=== PATIENT | male | born 1945 | race Caucasian/White ===

== ENCOUNTER → 2020-01-03 12:28 | Outpatient (CLI) | payer MEDICARE, OTHER, SELFPAY ==
--- NOTE | 2020-01-03 12:45 | CT_ITS ---
STUDY: CT SCAN LEFT LOWER EXTREMITY LEFT REASON FOR EXAM: Male, 74 years old. VARUS DEFORMITY LT KNEE. Planning for MIN RADIATION DOSAGE (If Supplied By Facility): CTDIvol = ( 19.14 ) mGy, DLP = ( 1309.89 ) mGycm. Individualized dose optimization techniques were used for this CT.? TECHNIQUE: Multiple axial tomographic images of the hip joint, knee joint and ankle joint were obtained. Coronal and sagittal reconstruction was obtained as well. COMPARISON: None. FINDINGS: The left hip joint is unremarkable. There is no evidence of a bony lesion. The joint spaces well-maintained. There is a marked degree of joint space narrowing involving the medial compartment of the knee joint with degenerative spur formation along the distal femur and proximal tibia. A prominent degenerative spur is seen along the anterior femoral condyle. Several well-defined bony density is seen projecting over the posterior aspect of the distal femoral metaphysis. 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 There is fibrous deformity of the knee joint. The ankle joint demonstrates evidence of a plantar calcaneal spur. A talar neck beak is also seen. CT/Extremity Lower without Contra IMPRESSION: Marked degree of joint space narrowing involving the medial compartment of knee joint with evidence of degenerative spurring of the distal femur and proximal tibia as described. Well-defined bony density is seen along the posterior aspect of the distal femur suggestive of synovial osteochondromatosis. Electronically Signed: Kamran Schaeffer, at 13:50 EDT , Service support ,
== END ==
PROVIDERS: PCP Family Medicine; Referring Provider Specialist; Visit Provider Specialist
DX: M21.162 Varus deformity, not elsewhere classified, left knee (principal)
CPT/HCPCS: 73700

== ENCOUNTER → 2020-01-08 09:00 | Outpatient (CLI) | payer MEDICARE, OTHER, SELFPAY ==
--- NOTE | 2020-01-03 14:16 | HP.PCM_ITS ---
History and Physical History and Physical [facility] Patient Name: Tab Narayanan : 1945 From: NATI MORA PA-C DATE OF SURGERY: 01/22/2020 SCHEDULED PROCEDURE: left total knee arthroplasty HISTORY OF PRESENT ILLNESS: Preoperative history and physical exam was performed on January 03, 2020. This is a 74-year-old male who presents today with continued pain in bilateral knees. Patient has been having ongoing pain for over 10 years but states pain is increased over the past 6 months. Patient states his pain is increased with stairs, walking, and standing. He does have start up pain. Pain is located over the medial joint line of bilateral knees. His pain as being constant, aching, sharp, stabbing. Patient has difficult time with activities of daily living including shopping and leisure activities such as walking. He has stumbled secondary to the knee pain. Patient has attempted rest with minimal relief. He has tried ice, heat, elevation with no relief in symptoms. He has tried home exercises including stationary bike and weight loss with minimal relief. He has tried oral medications with no relief in symptoms. Patient denies previous surgery on bilateral knees. He has attempted Aleve and [id number] Advil. After failing conservative measures and discussing treatment options with Dr. Sammy Miranda, the patient does wish to proceed with a left total knee arthroplasty. We are obtaining surgical clearance from the primary care physician. He does have history of hypertension and hypercholesterolemia. Currently denies any chest pain, shortness of breath, fevers chills, recent infections. REVIEW OF SYSTEMS: ROS: Const: Denies change in appetite, fever and weight change. CV: Denies chest pain, heart murmur and irregular heartbeat. Resp: Reports cough, but denies pneumonia, shortness of breath, tuberculosis and wheezing. GI: Denies constipation, diarrhea, heartburn, nausea, rectal itching, bloody sto ols and vomiting. : Denies incontinence. Musculo: Reports leg swelling, pain, trouble walking and weakness. Skin: Denies Raynaud's, history of shingles and tattoo. Neuro: Reports tremor but denies ambulatory dysfunction, dizziness and numbness/tingling. Psych: Denies anxiety, insomnia and stress. Marcus/Lymph: Denies anemia, bleeding/bruising tendency and past transfusion. Reviewed, no changes. PAST MEDICAL HISTORY: Advance Care Plan: Other Directive, LIVING WILL Effective Date: 12/19/2019 PMH: Medical Problems: High Blood Pressure, Hypercholesterolemia Accidents: None Surgical Hx: Hernia Repair Anesthesia Complications: None Assistive Devices: Dentures, Glasses Reviewed and updated. SOCIAL HISTORY: SH: Marital: .Occupation: Retired.Work Status: Retired.Hand Dominance: Right-handed. Personal Habits: Cigarette Use: Former - 30 YEARS AGO.Smokeless Tobacco: Never Used Smokeless Tobacco.E-Cigarette Use: Never used.Alcohol: Has consumed alcohol in the past.Drug Use: Denies Use.Enjoy Exercising: Never Exercises. Reviewed and updated. VITALS: Ht: 70 Wt: 313lb Wt [id number] BMI: 44.9 BP: 142/92 Pulse: 86 Resp: 20 T: 97.5 T: 36.4C ALLERGIES: No Known Drug Allergy MEDICATIONS: Aspirin 81 81 mg 1 pill 2x/day by mouth, Lisinopril 20 mg 1 by mouth every day, Fenofibric Acid 45 mg 1po qday, Atorvastatin Calcium 80 mg 1 by mouth every day PRE-OP EXAM: General appearance:NORMAL Other: Eyes: Conjunctivae and lids: NORMAL Pupils: ERR Ears, Nose, Mouth, and Throat: NORMAL Other: Inspection of lips, teeth and gums: NORMAL Other: Neck: Examination of neck: no masses noted. Respiratory: Assessment of respiratory effort: NORMAL Other: Auscultation of lungs: clear to auscultation no wheezes, rhonchi or rales. Cardiovascular: Auscultation of heart: regular rate and rhythm, no murmurs, gallops or rubs. Exam of carotid arteries: NORMAL Other: Gastrointestinal: Exam of abdomen: soft, nontender, nondistended bowel sounds present. PHYSICAL EXAMINATION: Patient walks with a mild antalgic gait. Left knee is cool to touch without erythema or signs of infection. Patient is tender to palpation along the medial joint line. Patient does have varus alignment. This is partially correctable on exam. Sensation intact to light touch. Neurovascularly intact. IMAGING STUDIES: Previous x-rays of the left knee reveal varus alignment with medial joint space narrowing, subchondral sclerosis, osteophyte formation consistent with severe stage IV erosive osteoarthritis. Right knee also reveals varus alignment with medial joint space narrowing, subchondral sclerosis, osteophyte formation consistent with severe stage IV erosive osteoarthritis. IMPRESSION: 1. Severe left knee osteoarthritis 2. Severe right knee Osteoarthritis 3. Hypertension 4. Hypercholesterolemia PLAN: Dr. Sammy Miranda did discuss and review with the patient all treatment options including surgical versus nonsurgical options. Patient does wish to proceed with the above-stated procedure. Potential risks, benefits, and complications of the procedure were discussed in detail including but not limited to , infection, nerve and blood vessel damage, persistent pain, numbness, tingling, paresthesias, blood clot, pulmonary embolism, and requirement for possible further surgery. The patient expressed full understanding and has no further questions for the doctor. Patient does agree to proceed with the above-stated procedure and has signed the surgery consent form. We discussed the current risks associated with COVID 19. This does include the risk of exposure while in the hospital. Patient was reassured local hospitals have low infection rates and are taking all necessary precautions to avoid exposure to patients. In addition, we discussed strategies that can be used to help limit exposure including those that limit the patient's time in the hospital. Also using strategies to limit the patient's need for continued inpatient services after being discharged from the hospital. Patient was notified that we will need to comply with any screening or testing the hospital wishes to perform or that surgery may be delayed for any positive results. This dictation was created using voice recognition software. Phonetic and/or grammatical errors may exist. ___ I have re-examined the patient. There are no clinical changes since date of exam. ___ See progress notes for changes. ___ Dictated on admission Date: Time: Signature:
--- NOTE | 2020-01-15 11:03 | EKG12_ITS ---
Test Reason : PRE OP Blood Pressure : / mmHG Vent. Rate : 093 BPM Atrial Rate : 093 BPM P-R Int : 134 ms QRS Dur : 092 ms QT Int : 378 ms P-R-T Axes : 055 044 -20 degrees QTc Int : 469 ms Normal sinus rhythm ST & T wave abnormality, consider inferior ischemia Abnormal ECG Confirmed by BELLA LAN ([id number]), social media editor JOSSUE SANTORO ([id number]) on 01/20/2020 9:43:44 AM Referred By: Sammy Miranda Confirmed By:BELLA LAN
[2020-01-15 11:26] LABS: Absolute Lymphocyte Count 1.75 X10^3/uL (0.83-4.51); Absolute Neutrophil Count 4.4 X10^3/uL (2.0-7.7); Basophil# 0.09 X10^3/uL; Basophil% 1.2 % (0-1); Eosinophil# 0.39 X10^3/uL; Hematocrit 45.4 % (40-54); Hemoglobin 14.6 g/dL (13.0-16.5); Lymphocyte # 1.75 X10^3/ul (4.0); Lymphocyte % 22.5 % (19-41); Mean Corp Hgb Conc 32.2 g/dL (32-36); Mean Corpuscular Hgb 30.6 pg (27.0-32.0); Mean Corpuscular Volume 95.2 fL (80-94); Mean Platelet Vol. 12.1 fl (6.2-12.0); Monocyte# 1.15 X10^3/uL; Monocyte% 14.8 % (0-10); NRBC Flagged by Analyzer 0 % (0-5); Neutrophil # 4.36 X10^3/uL (2.7-7.7); Neutrophil % 56.1 % (47-70); Platelet Count 253 K/mm3 (150-450); RBC Distribution Width CV 12.7 % (11.6-14.6); RBC Distribution Width SD 43.8 fl (35.1-43.9); Red Blood Count 4.77 M/mm3 (4.6-6.2); White Blood Count 7.8 K/mm3 (4.4-11.0)
[2020-01-15 11:52] LABS: Anion Gap 5 (5-15); BUN 14 mg/dL (7-18); BUN/Creat Ratio 13.1 RATIO (10-20); Calcium,Total 8.8 mg/dL (8.5-10.1); Chloride 110 mmol/L (98-107); Creatinine, Serum 1.07 mg/dL (0.70-1.30); EST Glomerular Filtration Rate 72 mL/min (>60); Est Glom Filt Rate - Afr Amer 87 mL/min (>60); Glucose 85 mg/dL (74-106); Potassium 4.1 mmol/L (3.5-5.1); Sodium Level 141 mmol/L (136-145)
[2020-01-15 12:23] LABS: Magnesium 2.3 mg/dL (1.6-2.6)
== END ==
PROVIDERS: Anesthesiology; PCP Family Medicine; Referring Provider Specialist; Visit Provider Specialist
DX: Z01.818 Encounter for other preprocedural examination (principal); Z11.59 Encounter for screening for other viral diseases
CPT/HCPCS: 36415; 80048; 83735; 85025; 87081; 87635; 93005; 94799; U0003

== ENCOUNTER → 2020-01-30 06:08 | Outpatient (CLI) | payer MEDICARE, OTHER, SELFPAY ==
[2020-01-22 14:23] VITALS: BMI 44.9
--- NOTE | 2020-01-30 06:09 | ECHOCS_ITS ---
Reason For Study: CHEST PAIN Procedure This was a 2D Doppler, Color Flow transthoracic echocardiogram. Exam performed in department. Left Ventricle Normal LV size. Left ventricular systolic function is normal. The estimated ejection fraction is 55 %. No regional wall motion abnormalities noted. Right Ventricle Normal RV size. Normal systolic function. Atria Normal left atrium. The right atrium is mildly enlarged. Mitral Valve Normal mitral valve. Tricuspid Valve Normal tricuspid valve. Mild (1+) tricuspid valve insufficiency. Pulmonary artery systolic pressure is 40 mmHg. Pulmonic Valve The pulmonic valve is not well visualized. Great Vessels Normal aortic root. The pulmonary artery is normal size. Normal inferior vena cava. Pericardium/Pleural No pericardial effusion. Medication Diluted definity 3ml given slow IV push to enhance endocardial definition. Performed a rapid injection of agitated mix of 9 cc saline and 1cc air to assess for atrial septal defect. MMode/2D Measurements & Calculations LVIDd: 4.8 cm IVSd: 1.3 cm Ao root diam: 3.3 cm LVIDs: 3.4 cm LVPWd: 1.2 cm RVDd: 4.0 cm FS: 28.6 % LAV(MOD-bp): 53.7 ml LVAd ap4: 36.6 cm2 SV(MOD-sp4): 71.2 ml LAV(MOD-bp) Indexed: 21.3 ml/m2 EDV(MOD-sp4): 136.0 ml LAV(MOD-sp2): 52.1 ml EDV(sp4-el): 143.7 ml LAV(MOD-sp4): 52.5 ml LVAs ap4: 23.6 cm2 ESV(MOD-sp4): 64.8 ml ESV(sp4-el): 67.9 ml EF(MOD-sp4): 52.3 % EF(sp4-el): 52.7 % SV(sp4-el): 75.8 ml LA A4 area: 19.5 cm2 LA dimension(2D): 4.0 cm RA A4 area: 21.3 cm2 Time Measurements MV dec time: 0.21 sec Doppler Measurements & Calculations MV E max dereck: 67.5 cm/sec Lat Peak E' Dereck: 4.5 cm/sec Med Peak E' Dereck: 5.9 cm/sec MV A max dereck: 98.3 cm/sec E/E' lat: 14.9 E/E' med: 11.4 MV E/A: 0.69 Ao V2 max: 167.5 cm/sec LV V1 max: 102.2 cm/sec PA V2 max: 128.8 cm/sec Ao max P.2 mmHg LV V1 max P.2 mmHg TR max dereck: 295.8 cm/sec TR max P.0 mmHg Interpretation Summary Normal LV size. Left ventricular systolic function is normal. The estimated ejection fraction is 55 %. Mild (1+) tricuspid valve insufficiency. Pulmonary artery systolic pressure is 40 mmHg. The study was technically difficult. Contrast injection was performed. Ordering Physician: Azar Drake Referring Physician: ERIC DOUGLAS Performed By: Janny Gruber RDCS
--- NOTE | 2020-01-30 17:04 | STRESSREP ---
Stress Test Report Pharmacologic myocardial perfusion stress test. 74-year-old man with a history of coronary artery disease. Medications: Aspirin, lisinopril, Lipitor. Stress protocol: Resting EKG demonstrates normal sinus rhythm with a rate of 78 bpm normal intervals are noted resting blood pressure is 142/98 mmHg. 0.4 mg of regadenoson was infused per usual protocol followed by rapid intravenous saline flush injection continuous classroom monitor was performed. The maximum heart rate attained was 115 bpm which was 77% of maximum predicted heart rate the maximum workload was 1 metabolic equivalent. At rest there were no ST or T wave changes noted to suggest ischemia at peak infusion nonspecific ST-T wave changes were noted. No clinical angina was noted. The resting blood pressure was 142/98 with a peak blood pressure of the same. Myocardial perfusion protocol. 14.9 mCi of technetium 99m sestamibi was injected at rest. 0.4 mg of regadenoson was infused per usual protocol. At peak infusion 45.0 mCi of technetium 99m sestamibi was injected stress images were obtained stress and rest images were reconstructed and compared in the short axis vertical long and horizontal long axis. Gated images were also obtained. Perfusion SPECT analysis: Review of the stress images demonstrate normal uptake of tracer noted in all areas of the myocardium the resting images similar demonstrate normal uptake of tracer noted in all areas of the myocardium. No reversibility is noted suggest ischemia no previous infarct is noted. Gated SPECT analysis: The gated ejection fraction is noted to be 65%. Conclusion: Normal pharmacologic myocardial perfusion stress test.
== END ==
PROVIDERS: PCP Family Medicine; Referring Provider Internal Medicine Cardiovascular Disease; Visit Provider Internal Medicine Cardiovascular Disease
DX: Z01.810 Encounter for preprocedural cardiovascular examination (principal); R07.9 Chest pain, unspecified
CPT/HCPCS: 78452; 93017; 93306; A9500; Q9957; A4216; C8929; J2785

== ENCOUNTER 2020-02-26 08:21 | Observation (INO) | payer MEDICARE, OTHER, SELFPAY ==
[2020-01-22 14:23] VITALS: BMI 44.9
--- NOTE | 2020-02-11 17:10 | HP.PCM_ITS ---
History and Physical History and Physical Patient Name: Tab Narayanan : 1945 From: LAYLA KHAN NP DATE OF SURGERY: 02/26/2020 SCHEDULED PROCEDURE: Left total knee arthroplasty HISTORY OF PRESENT ILLNESS: Preoperative history and physical exam was performed on February 11, 2020. This 74-year-old male who has been having on going bilateral knee pain for over 10 years that has significantly increased within the last 6 months. The pain is increased with stairs, walking and standing. The patient does report start up pain. The pain is located over the medial joint line. He describes the pain as constant, aching, sharp and stabbing. The patient reports inability to perform activities of daily living including bathing, shopping and leisure activities such as walking. The patient states he has stumbled secondary to the left knee pain. Previous conservative treatment measures consisting of rest, ice, heat and elevation with minimal to no relief. The patient has attempted home exercises including a stationary bike and weight loss with minimal relief. The patient states he has tried oral medications such as Aleve and [id number] Advil which provided minimal relief. The patient was previously scheduled for surgery on January 22, 2020. He was canceled by anesthesia who requested cardiology clearance. We have received clearance from his primary care provider, Dr. Bharat Monae and Dr. Drake with cardiology. The patient does have a medical history pertinent for hypertension and hypercholesterolemia. The patient denies chest pain, chills, shortness breath, difficulty breathing or recent infections. After failing conservative measures and discussing treatment options with Dr. Sammy Miranda, the patient does wish to proceed with a left total knee arthroplasty. REVIEW OF SYSTEMS: ROS: Const: Denies change in appetite, fever and weight change. CV: Denies chest pain, heart murmur and irregular heartbeat. Resp: Reports cough, but denies pneumonia, shortness of breath, tuberculosis and wheezing. GI: Denies constipation, diarrhea, heartburn, nausea, rectal itching, bloody stools and vomiting. : Denies incontinence. Musculo: Reports leg swelling, pain, trouble walking and weakness. Skin: Denies Raynaud's, history of shingles and tattoo. Neuro: Reports tremor but denies ambulatory dysfunction, dizziness and numbness/tingling. Psych: Denies anxiety, insomnia and stress. Marcus/Lymph: Denies anemia, bleeding/bruising tendency and past transfusion. Reviewed, no changes. PAST MEDICAL HISTORY: Advance Care Plan: Other Directive, LIVING WILL Effective Date: 12/19/2019 PMH: Medical Problems: High Blood Pressure, Hypercholesterolemia Accidents: None Surgical Hx: Hernia Repair Anesthesia Complications: None Assistive Devices: Dentures, Glasses Reviewed, no changes. SOCIAL HISTORY: SH: Marital: .Occupation: Retired.Work Status: Retired.Hand Dominance: Right- handed. Personal Habits: Cigarette Use: Former - 30 YEARS AGO.Smokeless Tobacco: Never Used Smokeless Tobacco.E-Cigarette Use: Never used.Alcohol: Has consumed alcohol in the past.Drug Use: Denies Use.Enjoy Exercising: Never Exercises. Reviewed, no changes. VITALS: Ht: 70 Wt: 312lb Wt k.523 BMI: 44.8 BP: 126/65 Pulse: 94 Resp: 20 T: 97.1 T: 36.2C ALLERGIES: No Known Drug Allergy MEDICATIONS: Aspirin 81 81 mg 1 pill 2x/day by mouth, Lisinopril 20 mg 1 by mouth every day, Fenofibric Acid 45 mg 1po qday, Atorvastatin Calcium 80 mg 1 by mouth every day PRE-OP EXAM: General appearance:NORMAL Other: Eyes: Conjunctivae and lids: NORMAL Pupils: ERR Ears, Nose, Mouth, and Throat: NORMAL Other: Inspection of lips, teeth and gums: NORMAL Other: Respiratory: Assessment of respiratory effort: NORMAL Other: Auscultation of lungs: clear to auscultation no wheezes, rhonchi or rales. Cardiovascular: Auscultation of heart: regular rate and rhythm, no murmurs, gallops or rubs. Gastrointestinal: Exam of abdomen: soft, nontender, nondistended bowel sounds present. Neurological: see below Psychiatric: Orientation to time, place and person: NORMAL Other: Mood and affect: NORMAL Other: PHYSICAL EXAMINATION: The patient ambulates with an antalgic gait. Left knee is cool to touch without erythema or signs of infection. Tenderness to palpation along the medial joint line of the left knee. Partially correctable varus alignment. Sensation intact to light touch. IMAGING STUDIES: 4 views of left knee including sunrise and lateral and bilateral weight-bearing AP and tunnel views obtained on December 19, 2019 reviewed reveal the left knee with varus alignment. There is medial joint space narrowing, subchondral sclerosis and osteophyte formation consistent with severe stage IV erosive osteoarthritis. IMPRESSION: 1. Left knee osteoarthritis 2. Hypertension 3. Hypercholesterolemia PLAN: Dr. Sammy Miranda did discuss and review with the patient all treatment options including surgical versus nonsurgical. The patient does wish to proceed with the above-stated procedure. Potential risk, benefits and complications of the procedure were discussed in detail including but not limited to , infection, nerve and blood vessel damage, persistent pain, numbness, tingling, paresthesia, blood clot, pulmonary embolism and requirement for possible further surgery. The patient expressed full understanding and has no further questions for the doctor. The patient does agree to proceed with the above-stated procedure and has signed the surgery consent form. Discussed with the patient the risks associated with the COVID-19 virus including the risk of exposure while at the hospital. The patient was reassured local hospitals have low infection rates and taken all necessary precautions to limit patient exposure to COVID-19. Limiting the patient's time in the hospital may decrease their exposure to COVID-19. The patient was notified that we will need to comply with any screening or testing the hospital wishes to perform and that surgery may be delayed for any positive test results. This dictation was created using voice recognition software. Phonetic and/or grammatical errors may exist. ___ I have re-examined the patient. There are no clinical changes since date of exam. ___ See progress notes for changes. ___ Dictated on admission Date: Time: Signature:
[2020-02-26] VITALS (16 sets, daily range): BP systolic 104–152; BP diastolic 61–92; PULSE 78–105; RESP 16–20; TEMP 36.1–37; O2SAT 80–100; BMI 44.5
[2020-02-26] MEDS: Acetaminophen 500 MG Tablet 1000 MG PO ×3 (07:00→22:28)
[2020-02-26] MEDS: Gabapentin 600 MG Tablet PO (07:00)
[2020-02-26] MEDS: Lactated Ringers 1,000 ML 999 ML IV ×2 (09:09→12:51)
[2020-02-26] MEDS: Celecoxib 200 MG Capsule 400 MG PO (09:10)
[2020-02-26] MEDS: Lactated Ringers 1,000 ML 125 ML IV ×3 (09:10→18:07)
[2020-02-26 10:06] LABS: Bedside Glucose 102 mg/dL (70-110)
[2020-02-26] MEDS: dexAMETHasone 10 MG/ML Vial IV (10:57)
--- NOTE | 2020-02-26 12:05 | OP.PCM_ITS ---
Report of Operation Date of Procedure: 02/26/20 Pre-Operative Diagnosis: Left knee primary osteoarthritis Post-Operative Diagnosis: Left knee primary osteoarthritis Surgery/Procedure Performed:: Left knee robotic assisted minimally invasive total knee replacement set up / operator: Aysha Tavarez Type of Anesthesia:: Spinal Anesthesiologist: Ramu Luong Special Medications: 2 g Ancef, 1 g TXA at incision, 1 g TXA closure, 10 mg Decadron, joint cocktail (5 mg Duramorph, 30 mL of 0.5% Ropivicaine, 1000 units of epinephrine, 30 mg of Toradol) Specimen's removed: Bony cuts Estimated Blood Loss (mL): 40 Fluids Replaced: 1600 mL crystalloid Description of Procedure: Implants used: 1. Kayla size 6 triathlon cruciate retaining distal femoral press-fit component 2. Kayla size 7 press-fit tritanium tibial baseplate 3. Kayla X3 10 mm CS polyethylene 4. Kayla X3 3 5 mm asymmetric patella Brief history operative indications: 74-year-old m with history of left knee osteoarthritis with radiographic findings with loss of joint space, osteophyte formation and subchondral sclerosis. Failed conservative measures as mentioned in the H&P. Discussion of total knee arthroplasty as well as risk and benefits were discussed the patient including but not limited to blood loss, DVTs, PEs, neurovascular damage, general risk of anesthesia including loss of life, and stiffness or instability were discussed with patient. Patient demonstrated understanding and was able to sign informed consent. Procedure: On the date of procedure patient's left lower extremity was marked in the preoperative area. The patient was then taken back to the operating room where the patient was placed on the table in the supine position. All bony prominences were identified a well-padded. Anesthesia assumed control of the C-spine and airway and remained controlled throughout the remainder of the procedure. A tourniquet was placed on the left upper thigh and the leg was prepped in a sterile fashion. The surgeon then scrubbed at this time .Upon reentering the room left lower extremity was draped in a standard orthopedic fashion. A timeout was then called and everyone agreed upon the side, the site, the procedure to be performed, patient's identity and antibiotics given. Esmarch bandage was used to exsanguinate the extremity and the tourniquet was placed up to 250 mmHg with the knee in flexion. A midline skin incision was made and sharp dissection was taken down through skin subcutaneous tissue and fat. The standard medial parapatellar incision was made and the patella was subluxed laterally. An Appropriate deep MCL release was done and the fat pad was resected. Our attention was then directed to the patella. The patella was everted and a flat resection was made. The knee was then flexed up in 2 femoral pins were placed inside the incision and 2 tibial pins were placed outside the incision in the medial tibia bicortically. Once this was completed the 2 checkpoints in the femur and tibia were placed. Knee was then flexed up and the bony landmarks were registered. Once this was completed knee was taken through range of motion and manually stressed allowing us to a plan for an appropriate tibial cut. The robotic arm was brought into the field sterilely and checkpoint and saw were registered. Based on the patient's deformity the tibial cut was made in 3 degrees varus. At this time the tensioner was then placed in the joint and ligament tension was checked at 90 degrees and full extension. Based on the patient's ligamentous tension appropriate adjustments were made to the operative plan and ligament releases were done. Once we were happy with our operative plan with balanced flexion and extension gaps our attention was directed to the femur. The robot was brought into the field sterilely and registered. Posterior condylar cuts, anterior chamfer cuts and anterior cuts were appropriately made for a size 6 femur. When these were completed the saws were switched out in the distal femoral and posterior chamfer cuts were made. Protecting the soft tissue throughout this time. A size 7 tibial base plate was selected. the knee was flexed to 90 degrees and the soft tissues and posterior osteophytes were removed from the joint. 40 cc of the periarticular injection was injected into the posterior medial corner of the joint. The appropriate trials were then placed on the femur and tibia. A trial polyethylene was trialed to ensure proper balancing and stability of the knee. The appropriate tibial internal rotation was then marked with a bovie. Our attention was then directed to the patella. The lug holes were drilled and the patella trial was placed. Patellar tracking was checked and deemed appropriate. Once we were happy lug holes were drilled for the femur and trial components were removed. the tibia was subluxed and pinned into place and the keel was punched and drilled appropriately. Final components were verified and opened, and cement was mixed in a vacuum. [employer] Simplex cement was used. The wound was copiously irrigated with normal saline. When the cement was ready the components were impacted into place starting with the tibia, femur and finally cementing the patella. The trial poly component was placed and the knee was placed in full extension. All excess cement was removed in the process. Once the cement had cured the tracking, alignment and balance were verified and a size 10 mm CS polyethylene component was placed. Once the final components were placed an Irrisept lavage was performed and the wound was copiously irrigated with normal saline solution and the periarticular injection was given. The wound was closed in a layer miguel fashion using #1 vicryl interrupted sutures for the arthrotomy, 2-0 interrupted Vicryl suture for the subcuticular layer and elsa for final skin closure. A sterile compressive dressing was then placed. The patient was then awakened from anesthesia, transferred to the [facility] and transferred to the PACU for recovery. Post op plan DVT ppx: ASA 81mg BID, thigh high compression stockings Follow up: in office in 2 weeks for wound check PT: to start POD #0 at hospital, outpatient PT should be arranged. Due to the complexity of this case robotic arm was used to assist in the surgery to improve accuracy and clinical outcomes. - Complications No intraoperative complications - Admit VTE Documentation VTE Present on Admission: No VTE Mechan Device Prophylaxis: SCD's, Thigh High ALLISON Hose VTE Pharm Prophylaxis ordered?: Yes
--- NOTE | 2020-02-26 13:04 | RAD_ITS ---
STUDY: X-RAY - LEFT KNEE REASON FOR EXAM: Male, 74 years old. POST OP, LEFT TOTAL KNEE TECHNIQUE: 2 view(s) of the knee. COMPARISON: None. FINDINGS: Normal visualized distal femur. Normal visualized proximal tibia and fibula. Normal proximal tibiofibular articulation. The patient is status post total knee replacement. There is good alignment. Postoperative soft tissue changes. RAD/Knee 1 or 2 Views IMPRESSION: Status post total knee replacement. There is good alignment. Postoperative soft tissue changes. Electronically Signed: Kamran Schaeffer, at 13:29 EDT , Service support ,
[2020-02-26] MEDS: Famotidine 20 MG Tablet PO (15:10)
[2020-02-26] MEDS: Ensure Surgery 237 ML LIQUID PO ×2 (15:10→15:16)
--- NOTE | 2020-02-26 15:49 | PCM.PN.HOSP ---
Reason for Visit: Consult for post-op medical management Subjective: 74-year-old male past medical history hypertension, hyperlipidemia, obesity, BMI 44.5, [facility] Comes in for left total knee replacement. He had had bilateral knee pain ongoing for 10 years, worsening over the last 6 months. Pain is worse with walking, standing and going up the stairs. Pain also affects his activities of daily living. He had tried At[place]and 30 treatment with no relief. Patient is preop clearance showed an abnormal EKG with T wave inversions in lead III. He saw cardiology and a stress test was recommended. Stress test done on 01/30/20 was normal, EF 65%. Patient was seen and examined in the immediate postop.. His pain was controlled. He denied any chest pain or dizziness or palpitation. Vitals/I&O's: Vital Signs Temp Pulse Resp BP Pulse Ox 97.8 F 88 20 H 121/75 H 93 02/26/20 14:38 02/26/20 14:38 02/26/20 14:38 02/26/20 14:38 02/26/20 14:38 Oxygen Flow Rate (L/min) 6 Oxygen Delivery Method Simple Mask Weight: 140.8 kg Body Mass Index (BMI) 44.5 Intake and Output for Last 24 Hours 02/24/20 02/25/20 02/26/20 23:59 23:59 23:59 Intake Total 3435 / 3435 Balance 3435 / 3435 General: Alert, Oriented x3, Cooperative, No apparent distress, - - Morbidly obese HEENT: Atraumatic, PERRLA, EOMI, Normocephalic Oral: Moist Mucosa Neck: Supple Lungs: Clear to auscultation, Normal air movement Cardiovascular: Regular rate, Regular Rhythm, Normal S1, Normal S2, No murmurs Abdomen: Bowel Sounds Present, Soft, Non Tender, Non-Distended, No Hepato-splenomegaly Extremities: No edema, - - Dressing and Edmar wraps over the left knee and proximal lower leg. Patient is in bilateral ALLISON hoses Skin: No rashes Musculoskeletal: No Tenderness to Palpation of Joints or Extremities Lymphatic: No Cervical, Supraclavicular, or Inguinal Adenopathy Neurological: Cranial nerves II-XII grossly intact, Neuro grossly intact Psych/Mental Status: Normal Affect, Appropriate Laboratory Results 02/26/20 09:06: POC Glucose 102 Current Medications Acetaminophen (Tylenol) 1,000 mg PO Q8 [facility] Last Admin: 02/26/20 15:06 Dose: 1,000 mg Documented by: Aspir[facility] ([facility], Baby) [facility] Atorvastatin Calcium (Lipitor) 80 mg PO QHS [facility] Cholecalciferol (Vitamin D (25mcg)) 1,000 unit PO DAILY [facility] Last Admin: 02/26/20 15:10 Dose: 1,000 unit Documented by: Enteral Nutritional Formula (Ensure Surgery) 237 ml PO TIDCM [facility] Last Admin: 02/26/20 15:16 Dose: 237 ml Documented by: Famotidine (Pepcid) 20 mg PO DAILY [facility] Last Admin: 02/26/20 15:10 Dose: 20 mg Documented by: Fenofibrate (Tricor) [facility] Lactated Ringer's () 1,000 mls @ 125 mls/hr IV .Q8H [facility] Last Admin: 02/26/20 14:15 Dose: 125 mls/hr Documented by: Cefazolin Sodium () 1 gm in 50 mls @ 150 mls/hr IV Q8H [facility] Stop: 02/27/20 02:19 Insulin Human Lispro (Humalog Kwikpen ([facility])) 1 - 6 unit SC Q4H PRN PRN; Protocol PRN Reason: BG>/= 180, SEE PROTOCOL Ketorolac Tromethamine (Toradol (Bk)) 15 mg IV Q6H PRN PRN PRN Reason: Pain Score 1-5/10 Lisinopril (Zestril) 40 mg PO DAILY [facility] Last Admin: 02/26/20 14:59 Dose: Not Given Documented by: Meloxicam (Mobic) 7.5 mg PO BID [facility] Morphine Sulfate () 2 - 4 mg IV Q2H PRN PRN PRN Reason: Pain Score 6-10/10 Morphine Sulfate () 2 - 4 mg IV Q2H PRN PRN PRN Reason: Pain Score 6-10/10 Ondansetron HCl (Zofran) 4 mg IV Q8H PRN PRN PRN Reason: NAUSEA Oxycodone HCl (Oxyir) 5 - 10 mg PO Q4H PRN PRN PRN Reason: Pain Score 4-10/10 Pantoprazole Sodium (Protonix) 20 mg PO DAILY PRN PRN Reason: REFLUX Promethazine HCl (Phenergan) 12.5 mg IM Q6H PRN PRN; Protocol PRN Reason: NAUSEA/VOMITING Senna/Docusate Sodium (Senokot-S, Jackie-Colace) 2 tablet PO BID AUDRA Sodium Chloride () 10 - 40 ml IV UD PRN PRN Reason: SALINE FLUSH STROKE Vital Signs/Narrative: Vital Signs Temp Pulse Resp BP Pulse Ox 02/26/20 14:38 97.8 F 88 20 H 121/75 H 93 02/26/20 14:03 97.5 F L 86 19 H 127/79 H 98 02/26/20 13:45 86 18 124/74 H 96 02/26/20 13:30 85 18 127/63 H 100 02/26/20 13:15 87 18 124/71 H 98 02/26/20 13:00 78 18 113/66 99 02/26/20 12:45 96.9 F L 78 18 104/61 99 02/26/20 12:35 96.9 F L 79 20 H 104/61 94 Medical Necessity - Tobacco Use Smoking Status: Former smoker Tobacco Use: Non-smoker Assessment/Plan All Active Problems (Last Reviewed 01/22/20 @ 14:[address] Azar Drake MD) Chest pain at rest (Acute) Preop cardiovascular exam (Acute) Abnormal electrocardiogram (Acute) 1. POD #0, status post left assisted minimally invasive total knee replacement - patient had no new complaints His pain is controlled, continue with scheduled Tylenol, morphine, oxycodone PRN per primary team Patient is encouraged to use his incentive spirometer, PT/OT to evaluate and treat 2. Previous pre-op abnormal EKG, stress test was normal Will continue to monitor clinically 3. Hypertension, controlled, continue on lisinopril 4. Hyperlipidemia, on atorvastatin, fenofibrate 5. Morbid obesity, BMI 44.5, complicates care, lifestyle modification recommended 6. DVT PPx-per primary team -aspirin Inpatient E&M: 28776 Subs Hosp L2
--- NOTE | 2020-02-26 17:40 | NURSING ---
spo2 dipping to 85% on RA while up in chair, 2lnc added. c.spo2 maintained. respiratory at bedside reinforcing I.S. 91%
[2020-02-26] MEDS: oxyCODONE 5 MG Tablet PO (18:06)
[2020-02-26] MEDS: Cefazolin 1 GM/50 ML BAG IV (18:06)
[2020-02-26] MEDS: Aspirin 81 MG TAB.CHEW PO (18:22)
[2020-02-26] MEDS: Senna/Docusate Sodium 1 Tablet 2 TABLET PO (22:28)
[2020-02-26] MEDS: Atorvastatin Calcium 80 MG Tablet PO (22:28)
[2020-02-27 02:14] VITALS: BP 122/66; PULSE 70; RESP 20; TEMP 36.4; O2SAT 98
[2020-02-27] MEDS: Cefazolin 1 GM/50 ML BAG IV (02:15)
[2020-02-27 06:19] LABS: Hematocrit 41.5 % (40-54); Hemoglobin 12.9 g/dL (13.0-16.5); Mean Corp Hgb Conc 31.1 g/dL (32-36); Mean Corpuscular Hgb 30.3 pg (27.0-32.0); Mean Corpuscular Volume 97.4 fL (80-94); Mean Platelet Vol. 12.1 fl (6.2-12.0); Platelet Count 259 K/mm3 (150-450); RBC Distribution Width CV 12.6 % (11.6-14.6); RBC Distribution Width SD 45.3 fl (35.1-43.9); Red Blood Count 4.26 M/mm3 (4.6-6.2); White Blood Count 16.9 K/mm3 (4.4-11.0)
[2020-02-27] MEDS: Acetaminophen 500 MG Tablet 1000 MG PO ×2 (06:23→13:59)
[2020-02-27] MEDS: oxyCODONE 5 MG Tablet PO ×2 (06:23→11:47)
[2020-02-27 06:44] LABS: Anion Gap 4 (5-15); BUN 19 mg/dL (7-18); Calcium,Total 8.6 mg/dL (8.5-10.1); Chloride 106 mmol/L (98-107); Creatinine, Serum 1.19 mg/dL (0.70-1.30); EST Glomerular Filtration Rate 64 mL/min (>60); Est Glom Filt Rate - Afr Amer 77 mL/min (>60); Estimated Creatinine Clearance 57.94 ml/min; Glucose 142 mg/dL (74-106); Potassium 4.8 mmol/L (3.5-5.1); Sodium Level 138 mmol/L (136-145)
[2020-02-27 08:00] VITALS: BP 128/70; PULSE 80; RESP 16; TEMP 36.4; O2SAT 95
[2020-02-27] MEDS: Aspirin 81 MG TAB.CHEW PO (08:04)
[2020-02-27] MEDS: Famotidine 20 MG Tablet PO (08:04)
[2020-02-27] MEDS: Senna/Docusate Sodium 1 Tablet 2 TABLET PO (08:04)
[2020-02-27] MEDS: Fenofibrate 48 MG Tablet PO (08:04)
[2020-02-27] MEDS: Lisinopril 40 MG Tablet PO (08:04)
[2020-02-27] MEDS: Ensure Surgery 237 ML LIQUID PO ×3 (08:10→14:01)
--- NOTE | 2020-02-27 08:55 | PCM.PN.ORT ---
Subjective: The patient was sitting in bedside chair upon examination. Patient denies any chest pain, shortness of breath, dizziness, lightheadedness, nausea or vomiting, or calf pain. Pain is controlled on medications. No adverse overnight events. Patient is doing well from a pain management standpoint. Patient did have some complications with his oxygen saturation during surgery and there is concern for undiagnosed sleep apnea. Patient has been on nasal oxygen overnight. This morning oxygen was taken off and patient was maintaining at 96% in his room. He has not been up walking yet with physical therapy. Objective: Vital signs stable and afebrile. Patient is able to plantarflex and dorsiflex actively. Sensation is intact to light touch to saphenous, sural, superficial and deep peroneal, and tibial distribution. Dressing is clean dry and intact. There is minimal drainage over the distal pin site dressing Negative Homans bilaterally, negative signs and symptoms of DVT. - Physical Exam Vitals/I&O's: Vital Signs Temp Pulse Resp BP Pulse Ox 97.6 F L 70 20 H 122/66 H 98 02/27/20 02:14 02/27/20 02:14 02/27/20 02:14 02/27/20 02:14 02/27/20 02:14 Oxygen Flow Rate (L/min) 3 Oxygen Delivery Method Nasal Cannula Weight: 140.8 kg Body Mass Index (BMI) 44.5 Intake and Output for Last 24 Hours 02/25/20 02/26/20 02/27/20 23:59 23:59 23:59 Intake Total 4808.33 / 4808.33 1139.33 / 1139.33 Balance 4808.33 / 4808.33 1139.33 / 1139.33 General: Alert, Oriented x3, Cooperative, No apparent distress Laboratory Results 02/26/20 09:06: POC Glucose 102 02/27/20 06:13: WBC 16.9 H, RBC 4.26 L, Hgb 12.9 L, Hct 41.5, MCV 97.4 H, MCH 30.3, MCHC 31.1 L, RDW Std Deviation 45.3 H, RDW Coeff of Jose 12.6, Plt Count 259, MPV 12.1 H 02/27/20 06:13: Sodium 138, Potassium 4.8, Chloride 106, Carbon Dioxide 28.0, Anion Gap 4 L, BUN 19 H, Creatinine 1.19, Estim Creat Clear Calc 57.94, Est GFR (MDRD) Af Amer 77, Est GFR (MDRD) Non-Af 64, BUN/Creatinine Ratio 16.0, Glucose 142 H, Calcium 8.6 Current Medications Acetaminophen (Tylenol) 1,000 mg PO Q8 [facility] Last Admin: 02/27/20 06:23 Dose: 1,000 mg Documented by: Aspirin ([facility], Baby) [facility] Last Admin: 02/27/20 08:04 Dose: 81 mg Documented by: Atorvastatin Calcium (Lipitor) 80 mg PO QHS [facility] Last Admin: 02/26/20 22:28 Dose: 80 mg Documented by: Cholecalciferol (Vitamin D (25mcg)) 1,000 unit PO DAILY [facility] Last Admin: 02/27/20 08:04 Dose: 1,000 unit Documented by: Enteral Nutritional Formula (Ensure Surgery) 237 ml PO TIDCM [facility] Last Admin: 02/27/20 08:10 Dose: 237 ml Documented by: Famotidine (Pepcid) 20 mg PO DAILY [facility] Last Admin: 02/27/20 08:04 Dose: 20 mg Documented by: Fenofibrate (Tricor) [facility] Last Admin: 02/27/20 08:04 Dose: 48 mg Documented by: Insulin Human Lispro (Humalog Kwikpen ([facility])) 1 - 6 unit SC Q4H PRN PRN; Protocol PRN Reason: BG>/= 180, SEE PROTOCOL Ketorolac Tromethamine (Toradol (Bkc)) 15 mg IV Q6H PRN PRN PRN Reason: Pain Score 1-5/10 Lisinopril (Zestril) 40 mg PO DAILY [facility] Last Admin: 02/27/20 08:04 Dose: 40 mg Documented by: Meloxicam (Mobic) 7.5 mg PO BID [facility] Morphine Sulfate () 2 - 4 mg IV Q2H PRN PRN PRN Reason: Pain Score 6-10/10 Morphine Sulfate () 2 - 4 mg IV Q2H PRN PRN PRN Reason: Pain Score 6-10/10 Ondansetron HCl (Zofran) 4 mg IV Q8H PRN PRN PRN Reason: NAUSEA Oxycodone HCl (Oxyir) 5 - 10 mg PO Q4H PRN PRN PRN Reason: Pain Score 4-10/10 Last Admin: 02/27/20 06:23 Dose: 5 mg Documented by: Pantoprazole Sodium (Protonix) 20 mg PO DAILY PRN PRN Reason: REFLUX Promethazine HCl (Phenergan) 12.5 mg IM Q6H PRN PRN; Protocol PRN Reason: NAUSEA/VOMITING Senna/Docusate Sodium (Senokot-S, Jackie-Colace) 2 tablet PO BID [facility] Last Admin: 02/27/20 08:04 Dose: 2 tablet Documented by: Sodium Chloride () 10 - 40 ml IV UD PRN PRN Reason: SALINE FLUSH Medical Necessity - Tobacco Use Smoking Status: Former smoker Tobacco Use: Non-smoker Assessment/Plan All Active Problems (Last Reviewed 01/22/20 @ 14:[address] Azar Drake MD) Chest pain at rest (Acute) Preop cardiovascular exam (Acute) Abnormal electrocardiogram (Acute) 1. S/P left total knee arthroplasty POD #1 2. Continue Pain Medications: Tylenol, meloxicam, and oxycodone as needed 3. DVT Prophylaxis: Take 81 mg aspirin twice daily for 4 weeks postoperatively for DVT prophylaxis 4. PT/OT: Weightbearing as tolerated 5. H & H: 12.9/41.5, asymptomatic. Secondary to acute blood loss from surgery 6. Reactive leukocytosis: Currently 16.9, afebrile. Patient did receive Decadron intraoperatively 7. Encouraged Incentive Spirometry 8. Continue postoperative medical management per medicine: I did discuss case with the hospitalist and we will continue to follow his O2 saturation throughout the day. If oxygen is required hospitalist will manage this. Patient states his is already scheduled him an appointment with his primary care physician for the concern for undiagnosed sleep apnea. 9. Disposition: Plan will be for possible discharge home today as long as patient is doing well and O2 saturation is well-maintained off oxygen. There is a possibility that patient may need to require oxygen on discharge depending upon how he does today. Prescriptions will be E scribed to right [facility] in [place]. He will follow-up per postop instructions. Patient will keep his scheduled appointment with the primary care physician for the undiagnosed sleep apnea. I have reviewed the [place] Automated Rx Reporting System (OARRS) report for this patient for refill pattern and other prescriber involvement as part of the appropriate surveillance for the provision of acute and chronic controlled medications. The report was requested and reviewed on the date of this entry and was considered in the prescribing process.
--- NOTE | 2020-02-27 09:03 | DCINST_ITS ---
Discharge Diet: No Restrictions Discharge Activity: May Not Drive May shower in (days): 1 - Dressing must be intact to skin. Turned dressing away from water Ice area for (Minutes): 20 - every hour while awake. Weight Bearing Status: Weight bearing as tolerated Elevate: Operative Extremity Additional Activity Instructions:: Wear elastic stockings for 2 weeks after your surgery. Call your doctor if your incision/area has: Continuous Slow Oozing, Sudden Increased Bleeding, Increased Pain/ Swelling, Increased Redness, Foul Smelling Discharge Call your doctor if you observe: Fever of 101 or Higher, Coldness, Increased Pain, Numbness or Tingling, Change in Color, Calf discomfort, Uncontrolled pain Remove Dressing in (days):: 4 - Okay to remove dressing on March 02, 2020 Additional Instructions: Follow orthopedic postop instructions Allergies/Adverse Reactions: Allergies No Known Allergies Allergy (Verified 02/26/20 08:58) Medications to take at Discharge Atorvastatin Calcium [Lipitor] 80 mg PO DAILY 01/08/20 Cholecalciferol (VIT D3) [Vitamin D3] 1,000 unit PO DAILY 01/08/20 Esomeprazole Mag Trihydrate [Nexium] 20 mg PO PRN PRN 01/08/20 Fenofibrate 54 mg PO DAILY 01/08/20 lisinopril 40 mg tablet 40 mg PO DAILY #90 tab 01/22/20 Acetaminophen [Tylenol] 1,000 mg PO Q8 #100 tab 02/27/20 Aspirin [Aspirin, Baby] 81 mg PO BIDCM tab.chew 02/27/20 Meloxicam [Mobic] 7.5 mg PO BID #60 tab 02/27/20 Oxycodone [Oxyir] 5 - 10 mg PO Q4H PRN PRN 5 Days #60 tab 02/27/20 Senna/Docusate Sodium [Senokot-S] 2 tab PO BID #10 tab 02/27/20 Tamsulosin HCl [Flomax] 0.8 mg PO DAILY #60 cap 02/27/20 The following prescriptions were given: Tamsulosin HCl [Flomax] 0.8 mg PO DAILY #60 cap Transmission Status: Received by [id number] Meloxicam [Mobic] 7.5 mg PO BID #60 tab Transmission Status: Received by [id number] Oxycodone [Oxyir] 5 - 10 mg PO Q4H PRN PRN 5 Days #60 tab PRN Reason: Pain Score 4-1010 Transmission Status: Received by [id number] Senna/Docusate Sodium [Senokot-S] 2 tab PO BID #10 tab Transmission Status: Received by [id number] Acetaminophen [Tylenol] 1,000 mg PO Q8 #100 tab Transmission Status: Received by [id number] Primary Care Physician: Bharat Monae MD [Primary Care Provider] - Please follow up with your Primary Care Physician in: follow up with PCP with regards to sleep apnea Test Results: Test results from this visit will be discussed in further detail at your follow- up appointment, if applicable. Please Follow Up With: [facility] When: 02/28/20 @ 9:00 am Please Follow Up With: Trish Currie NP-C When: 03/11/20 @ 9:15 am
--- NOTE | 2020-02-27 12:10 | CASEMGMT ---
Intro role of CM to patient and CRAIG form explained re: Observation status for treatment of TKR. Explained hospitalization will be paid per? insurance policy for Outpatient billing?and condition will continue to be evaluated for Inpt necessity. Also let pt know that [facility] sends paper in the billing packet with their phone number if questions arise. Discussed Pharmacy section of [facility]IG form and self administered medication guideline.? Pt verbalizes understanding and does not have further questions. Form signed and placed in chart, copy to pt. NAKUL SHERMAN BSN CM
[2020-02-27 14:00] VITALS: BP 138/93; PULSE 92; RESP 16; TEMP 36.4; O2SAT 95
--- NOTE | 2020-02-27 16:42 | PCM.PROGNOTE ---
Subjective: Patient was seen and examined today, I talked with orthopedic surgery about his care today by phone, patient was hypoxic last night but is not hypoxic this morning. He is going to be checked for sleep apnea as an outpatient he states. Patient complains of frequent urination at night which is gone on for the last couple of years, I asked him whether he would try a medication to see if this would help and he said he would. I transmitted a prescription for Flomax for the patient to use as an outpatient. - Physical Exam Vitals/I&O's: Vital Signs Temp Pulse Resp BP Pulse Ox 97.6 F L 92 16 138/93 H 95 02/27/20 14:00 02/27/20 14:00 02/27/20 14:00 02/27/20 14:00 02/27/20 14:00 Oxygen Flow Rate (L/min) 3 Oxygen Delivery Method Room Air Weight: 140.8 kg Body Mass Index (BMI) 44.5 Intake and Output for Last 24 Hours 02/25/20 02/26/20 02/27/20 23:59 23:59 23:59 Intake Total 4808.33 / 4808.33 1539.33 / 1539.33 Balance 4808.33 / 4808.33 1539.33 / 1539.33 General: Alert, Oriented x3, Cooperative, No apparent distress, Well developed, Well nourished HEENT: Atraumatic, PERRLA, EOMI, Normocephalic Oral: Moist Mucosa Neck: Supple, Trachea Midline, Thyroid Normal Size and Texture Lungs: Clear to auscultation, Normal air movement, No rhonchi, No wheeze, No rales Cardiovascular: Regular rate, Regular Rhythm, Normal S1, Normal S2, No murmurs, PMI Normal, No rub noted, No Gallop Abdomen: Bowel Sounds Present, Soft, Non Tender, Non-Distended Extremities: No clubbing, No cyanosis, Capillary Refill Less than 3 Seconds Skin: No rashes, No breakdown Musculoskeletal: No Tenderness to Palpation of Joints or Extremities Neurological: Cranial nerves II-XII grossly intact, Neuro grossly intact, Sensory exam intact to light touch and pain, Coordination normal Psych/Mental Status: Normal Affect, Appropriate, Alert and oriented to time, place, person, mood and affect Laboratory Results 02/27/20 06:13: WBC 16.9 H, RBC 4.26 L, Hgb 12.9 L, Hct 41.5, MCV 97.4 H, MCH 30.3, MCHC 31.1 L, RDW Std Deviation 45.3 H, RDW Coeff of Jose 12.6, Plt Count 259, MPV 12.1 H 02/27/20 06:13: Sodium 138, Potassium 4.8, Chloride 106, Carbon Dioxide 28.0, Anion Gap 4 L, BUN 19 H, Creatinine 1.19, Estim Creat Clear Calc 57.94, Est GFR (MDRD) Af Amer 77, Est GFR (MDRD) Non-Af 64, BUN/Creatinine Ratio 16.0, Glucose 142 H, Calcium 8.6 Medical Necessity - Tobacco Use Smoking Status: Former smoker Tobacco Use: Non-smoker Assessment/Plan All Active Problems (Last Reviewed 01/22/20 @ 14:[address] Azar Drake MD) Chest pain at rest (Resolved) #1 essential hypertension, continue present medication as an outpatient #2 hyperlipidemia #3 morbid obesity #4 hypoxia during sleep-probably secondary to undiagnosed sleep apnea-patient will follow-up with his PCP as an outpatient regarding this #5 nighttime urinary frequency-probably secondary to BPH-prescription for Flomax was generated for the patient to use as an outpatient #6 osteoarthritis-status post left knee total replacement postop day 1-patient will be discharged home today Inpatient E&M: 47004 Subs Hosp L2
== END 2020-02-27 14:29 | disposition home or self-care (01) ==
LOC: AC 13:59 → SDC 14:01 → MS3 14:01
PROVIDERS: Anesthesiology; Admitting Provider Specialist; PCP Family Medicine; Referring Provider Specialist; Visit Provider Internal Medicine
PROC: 0SRD0JZ Replacement of Left Knee Joint with Synthetic Substitute, Open Approach (ICD-10-PCS; CPT 27447; principal; 2020-02-26 10:00)
DX: M17.12 Unilateral primary osteoarthritis, left knee (principal); Z11.59 Encounter for screening for other viral diseases; I10 Essential (primary) hypertension; Z68.41 Body mass index [BMI] 40.0-44.9, adult; E78.5 Hyperlipidemia, unspecified; E66.01 Morbid (severe) obesity due to excess calories; R94.31 Abnormal electrocardiogram [ECG] [EKG]; Z79.899 Other long term (current) drug therapy; Z79.82 Long term (current) use of aspirin; Z87.891 Personal history of nicotine dependence; R09.02 Hypoxemia; R35.0 Frequency of micturition; K21.9 Gastro-esophageal reflux disease without esophagitis
CPT/HCPCS: 01400; 27447; 64447; S2900; 36415; 73560; 80048; 82962; 85027; 87635; 94762; 96361; 96365; 96366; 97116; 97162; 97166; 97530; 97535; 99218; 99251; C1776; C9803; J7120; G0378; G0379; G0463; J2405; U0003

== ENCOUNTER → 2020-03-04 10:16 | Outpatient (CLI) | payer MEDICARE, OTHER, SELFPAY ==
[2020-02-26 14:38] VITALS: BMI 44.5
--- NOTE | 2020-03-04 10:20 | VDLE_ITS ---
Reason For Study: pain Procedure LEFT This is a venous duplex using B-mode, color GSV is normal. flow and spectral Doppler. CFV is compressible, spontaneous, phasic, Exam performed in department. competent, and demonstrates normal The exam was abbreviated due to the COVID 19 augmentation. protocol. FV is compressible, spontaneous, phasic, The exam was diagnostic. competent and demonstrates normal A preliminary report was called and/or faxed augmentation. to [facility]. POP V is compressible, spontaneous, phasic, competent and demonstrates normal augmentation. T/P Trunk is compressible. PTV is compressible. LT PerV is compressible. Interpretation Summary Deep veins of the left lower extremity are patent and compressible segmentally. There is no evidence of left lower extremity deep vein thrombosis. Valvular competence appears intact within the proximal deep venous system on the left . The left great saphenous vein appears patent and compressible segmentally. Ordering Physician: David Ponce Performed By: Pepito Foreman RVT
== END ==
PROVIDERS: PCP Family Medicine; Referring Provider Physician Assistant Surgical; Visit Provider Physician Assistant Surgical
DX: M79.662 Pain in left lower leg (principal)
CPT/HCPCS: 93971

== ENCOUNTER → 2020-03-11 12:46 | Outpatient (CLI) | payer MEDICARE, OTHER, SELFPAY ==
[2020-01-22 14:23] VITALS: BMI 44.9
[2020-02-26 14:38] VITALS: BMI 44.5
--- NOTE | 2020-03-11 12:53 | CT_ITS ---
HISTORY: RT KNEE OSTEOARTHRITIS, [facility] PROTOCOL TECHNIQUE: Noncontrast bone protocol CT of the right lower extremity was performed without contrast per MIN preoperative protocol. 2D reformats were performed by the technologist. Number of images including paperwork: [id number]. A radiation dose optimization technique was used for this scan. COMPARISON: None FINDINGS: BONES: No acute fracture. JOINTS: No subluxation. Severe tricompartmental degenerative changes of the knee with joint space narrowing, subchondral sclerosis and osteophyte formation. Moderate degenerative changes of the right hip and ankle. Degenerative changes of the symphysis pubis. SOFT TISSUES: Vascular calcifications. FOREIGN BODY: No radiopaque foreign body. CT/Extremity Lower without Contra IMPRESSION: Severe right knee osteoarthritis. Degenerative changes of the ankle and hip. Individualized dose optimization techniques were used for this CT. at 0559 Reported and signed by: Jennifer Grossman MD Electronically Signed: Jennifer Grossman MD at 5:58 EDT Tel , Service support ,
== END ==
PROVIDERS: PCP Family Medicine; Referring Provider Specialist; Visit Provider Specialist
DX: M21.161 Varus deformity, not elsewhere classified, right knee (principal)
CPT/HCPCS: 73700

== ENCOUNTER 2020-04-08 07:22 | Observation (INO) | payer MEDICARE, OTHER, SELFPAY ==
[2020-01-22 14:23] VITALS: BMI 44.9
[2020-02-26 14:38] VITALS: BMI 44.5
--- NOTE | 2020-03-15 17:04 | PCM.HP.BLA ---
History and Physical History and Physical Patient Name: Tab Narayanan : 1945 From: LAYLA KHAN NP DATE OF SURGERY: 04/08/2020 SCHEDULED PROCEDURE: Right total knee arthroplasty HISTORY OF PRESENT ILLNESS: Preoperative history and physical exam was performed on March 11, 2020. This is a 74-year-old male who has been having ongoing bilateral knee pain for over 10 years. The pain has significantly increased over the last 6 months. He describes the pain as constant, aching, sharp and stabbing. His pain is 2 on a scale of 10 at best and 10 on a scale of 10 with activity. The pain is made worse with stairs, walking and standing. The patient does report start up pain. The patient reports stumbling secondary to the right knee pain. The patient reports inability to perform activities of daily living including bathing, shopping and leisure activities such as walking. The patient has tried previous conservative measures consisting of rest, ice, heat and elevation with minimal to no relief. He has tried topical ointments and nonsteroidal anti-inflammatories with minimal relief. The patient has performed home exercises including the use of the stationary bike to work on range of motion. The patient has a medical history pertinent for hypertension and hypercholesterolemia. The patient denies chest pain, fevers, chills, shortness breath, difficulty breathing or recent infections. Surgical clearance has been obtained from his primary care provider Dr. Bharat Monae and rugby [employer] footballer Dr. Drake. After failing conservative measures and discussing treatment options with Dr. Sammy Miranda the patient does wish to proceed with a right total knee arthroplasty. REVIEW OF SYSTEMS: ROS: Const: Denies change in appetite, fever and weight change. CV: Denies chest pain, heart murmur and irregular heartbeat. Resp: Reports cough, but denies pneumonia, shortness of breath, tuberculosis and wheezing. GI: Denies constipation, diarrhea, heartburn, nausea, rectal itching, bloody stools and vomiting. : Denies incontinence. Musculo: Reports leg swelling, pain, trouble walking and weakness. Skin: Denies Raynaud's, history of shingles and tattoo. Neuro: Reports tremor but denies ambulatory dysfunction, dizziness and numbness/tingling. Psych: Denies anxiety, insomnia and stress. Marcus/Lymph: Denies anemia, bleeding/bruising tendency and past transfusion. Reviewed, no changes. PAST MEDICAL HISTORY: Advance Care Plan: Other Directive, LIVING WILL Effective Date: 12/19/2019 PMH: Medical Problems: High Blood Pressure, Hypercholesterolemia Accidents: None Surgical Hx: Hernia Repair Anesthesia Complications: None Assistive Devices: Dentures, Glasses Reviewed, no changes. SOCIAL HISTORY: SH: Marital: .Occupation: Retired.Work Status: Retired.Hand Dominance: Right-handed. Personal Habits: Cigarette Use: Former - 30 YEARS AGO.Smokeless Tobacco: Never Used Smokeless Tobacco.E-Cigarette Use: Never used.Alcohol: Has consumed alcohol in the past.Drug Use: Denies Use.Enjoy Exercising: Never Exercises. Reviewed, no changes. VITALS: T: 96.9 T: 36.1C Ht:70 Wt:305 lbs., 138.348 kg BMI:43.8 BP: 130/87 Pulse 102 Res: 16 ALLERGIES: No Known Drug Allergy MEDICATIONS: Aspirin 81 81 mg 1 pill 2x/day by mouth, Lisinopril 20 mg 2 by mouth every day, Fenofibric Acid 45 mg 1po qday, Atorvastatin Calcium 80 mg 1 by mouth every day, Mobic 7.5 mg po BID, Acetaminophen 500 mg 2 by mouth every 8 hours as needed for pain PRE-OP EXAM: General appearance:NORMAL Other: Eyes: Conjunctivae and lids: NORMAL Pupils: ERR Ears, Nose, Mouth, and Throat: NORMAL Other: Inspection of lips, teeth and gums: NORMAL Other: Respiratory: Assessment of respiratory effort: NORMAL Other: Auscultation of lungs: clear to auscultation no wheezes, rhonchi or rales. Cardiovascular: Auscultation of heart: regular rate and rhythm, no murmurs, gallops or rubs. Gastrointestinal: Exam of abdomen: soft, nontender, nondistended bowel sounds present. Neurological: see below Psychiatric: Orientation to time, place and person: NORMAL Other: Mood and affect: NORMAL Other: PHYSICAL EXAMINATION: The patient ambulates with a limping gait. The right knee is cool to touch without erythema or signs of infection. Moderate effusion visualized. Partially correctable varus alignment. Range of motion with flexion to 110. Firm endpoint with anterior and posterior drawer testing. Sensation intact to saphenous, sural, deep and superficial peroneal and tibial nerve distributions. IMAGING STUDIES: 4 views of right knee including sunrise and lateral and bilateral weight-bearing AP and tunnel views obtained on December 19, 2019 reviewed reveals the right knee with varus alignment. There is medial joint space narrowing, subchondral sclerosis and osteophyte formation consistent with severe stage IV erosive osteoarthritis. IMPRESSION: 1. Right knee osteoarthritis 2. Hypertension 3. Hypercholesterolemia PLAN: Dr. Sammy Miranda did discuss and review with the patient all treatment options including surgical versus nonsurgical. The patient does wish to proceed with the above-stated procedure. Potential risk, benefits and complications of the procedure were discussed in detail including but not limited to , infection, nerve and blood vessel damage, persistent pain, numbness, tingling, paresthesia, blood clot, pulmonary embolism and requirement for possible further surgery. The patient expressed full understanding and has no further questions for the doctor. The patient does agree to proceed with the above-stated procedure and has signed the surgery consent form. The patient was instructed to bring a walker to the hospital the day of his surgery. Discussed with the patient the risks associated with the COVID-19 virus including the risk of exposure while at the hospital. The patient was reassured local hospitals have low infection rates and taken all necessary precautions to limit patient exposure to COVID-19. Limiting the patient's time in the hospital may decrease their exposure to COVID-19. The patient was notified that we will need to comply with any screening or testing the hospital wishes to perform and that surgery may be delayed for any positive test results. This dictation was created using voice recognition software. Phonetic and/or grammatical errors may exist. ___ I have re-examined the patient. There are no clinical changes since date of exam. ___ See progress notes for changes. ___ Dictated on admission Date: Time: Signature:
[2020-04-08] VITALS (13 sets, daily range): BP systolic 101–154; BP diastolic 57–91; PULSE 82–100; RESP 16–18; TEMP 36.3–36.9; O2SAT 88–99; BMI 43.9
--- NOTE | 2020-04-08 07:22 | RAD_ITS ---
STUDY: X-RAY - RIGHT KNEE REASON FOR EXAM: Male, 74 years old. POST-OP IN PACU TECHNIQUE: 2 view(s) of the knee. COMPARISON: None. FINDINGS: Normal visualized distal femur. Normal visualized proximal tibia and fibula. Normal proximal tibiofibular articulation. The patient is status post right total knee replacement. There is good alignment. Postoperative soft tissue changes. RAD/Knee 1 or 2 Views IMPRESSION: Status post total knee replacement. There is good alignment. Postoperative soft tissue changes. Electronically Signed: Kamran Schaeffer, at 13:58 EST , Service support ,
[2020-04-08] MEDS: Lactated Ringers 1,000 ML 999 ML IV ×2 (07:53→12:30)
[2020-04-08] MEDS: Gabapentin 600 MG Tablet PO (07:55)
[2020-04-08] MEDS: Acetaminophen 500 MG Tablet 1000 MG PO ×3 (07:55→21:03)
[2020-04-08 08:06] LABS: Bedside Glucose 182 mg/dL (70-110)
--- NOTE | 2020-04-08 11:15 | PCM.OPRPT ---
Report of Operation Date of Procedure: 04/08/20 Pre-Operative Diagnosis: Right knee primary osteoarthritis Post-Operative Diagnosis: Right knee primary osteoarthritis Surgery/Procedure Performed:: Right minimally invasive robotic assisted total knee replacement Description of Surgical Findings:: Stable knee with good patella tracking fleet technician: Rakan Jim Type of Anesthesia:: Spinal Anesthesiologist: Ramu Luong Special Medications: 2 g Ancef, 1 g TXA at incision, 1 g TXA closure, 10 mg Decadron, joint cocktail (5 mg Duramorph, 30 mL of 0.5% Ropivicaine, 1000 units of epinephrine, 30 mg of Toradol) Specimen's removed: Bony cuts Estimated Blood Loss (mL): 75 Fluids Replaced: 1400 mL crystalloid Description of Procedure: Implants used: 1. Kayla size 6 triathlon cruciate retaining distal femoral press-fit component 2. Kayla size 7 press-fit tritanium tibial baseplate 3. [place] X3 10 mm CS polyethylene 4. Kayla X3 35 mm asymmetric patella Brief history operative indications: 74-year-old m with history of right knee osteoarthritis with radiographic findings with loss of joint space, osteophyte formation and subchondral sclerosis. Failed conservative measures as mentioned in the H&P. Discussion of total knee arthroplasty as well as risk and benefits were discussed the patient including but not limited to blood loss, DVTs, PEs, neurovascular damage, general risk of anesthesia including loss of life, and stiffness or instability were discussed with patient. Patient demonstrated understanding and was able to sign informed consent. Procedure: On the date of procedure patient's right lower extremity was marked in the preoperative area. The patient was then taken back to the operating room where the patient was placed on the table in the supine position. All bony prominences were identified a well-padded. Anesthesia assumed control of the C-spine and airway and remained controlled throughout the remainder of the procedure. A tourniquet was placed on the right upper thigh and the leg was prepped in a sterile fashion. The surgeon then scrubbed at this time .Upon reentering the room right lower extremity was draped in a standard orthopedic fashion. A timeout was then called and everyone agreed upon the side, the site, the procedure to be performed, patient's identity and antibiotics given. Esmarch bandage was used to exsanguinate the extremity and the tourniquet was placed up to 250 mmHg with the knee in flexion. A midline skin incision was made and sharp dissection was taken down through skin subcutaneous tissue and fat. The standard medial parapatellar incision was made and the patella was subluxed laterally. An Appropriate deep MCL release was done and the fat pad was resected. Our attention was then directed to the patella. The patella was everted and a flat resection was made. The knee was then flexed up in 2 femoral pins were placed inside the incision and 2 tibial pins were placed outside the incision in the medial tibia bicortically. Once this was completed the 2 checkpoints in the femur and tibia were placed. Knee was then flexed up and the bony landmarks were registered. Once this was completed knee was taken through range of motion and manually stressed allowing us to a plan for an appropriate tibial cut. The robotic arm was brought into the field sterilely and checkpoint and saw were registered. Based on the patient's deformity the tibial cut was made in 2 degrees varus. At this time the tensioner was then placed in the joint and ligament tension was checked at 90 degrees and full extension. Based on the patient's ligamentous tension appropriate adjustments were made to the operative plan and ligament releases were done. Once we were happy with our operative plan with balanced flexion and extension gaps our attention was directed to the femur. The robot was brought into the field sterilely and registered. Posterior condylar cuts, anterior chamfer cuts and anterior cuts were appropriately made for a size 6 femur. When these were completed the saws were switched out in the distal femoral and posterior chamfer cuts were made. Protecting the soft tissue throughout this time. A size 7 tibial base plate was selected. the knee was flexed to 90 degrees and the soft tissues and posterior osteophytes were removed from the joint. 40 cc of the periarticular injection was injected into the posterior medial corner of the joint. The appropriate trials were then placed on the femur and tibia. A trial polyethylene was trialed to ensure proper balancing and stability of the knee. The appropriate tibial internal rotation was then marked with a bovie. Our attention was then directed to the patella. The lug holes were drilled and the patella trial was placed. Patellar tracking was checked and deemed appropriate. Once we were happy lug holes were drilled for the femur and trial components were removed. the tibia was subluxed and pinned into place and the keel was punched and drilled appropriately. Final components were verified and opened, and cement was mixed in a vacuum. [employer] Simplex cement was used. The wound was copiously irrigated with normal saline. When the cement was ready the components were impacted into place starting with the tibia, femur and finally cementing the patella. The trial poly component was placed and the knee was placed in full extension. All excess cement was removed in the process. Once the cement had cured the tracking, alignment and balance were verified and a size 10 mm CS polyethylene component was placed. Once the final components were placed an Irrisept lavage was performed and the wound was copiously irrigated with normal saline solution and the periarticular injection was given. The wound was closed in a layer miguel fashion using #1 vicryl interrupted sutures for the arthrotomy, 2-0 interrupted Vicryl suture for the subcuticular layer and elsa for final skin closure. A sterile compressive dressing was then placed. The patient was then awakened from anesthesia, transferred to the [place] and transferred to the PACU for recovery. Post op plan DVT ppx: ASA 81mg BID, thigh high compression stockings Follow up: in office in 2 weeks for wound check PT: to start POD #0 at hospital, outpatient PT should be arranged. Due to the complexity of this case robotic arm was used to assist in the surgery to improve accuracy and clinical outcomes. - Complications No intraoperative complications - Admit VTE Documentation VTE Present on Admission: No VTE Mechan Device Prophylaxis: SCD's, Thigh High ALLISON Hose VTE Pharm Prophylaxis ordered?: Yes
[2020-04-08] MEDS: Lactated Ringers 1,000 ML 125 ML IV ×2 (12:45→19:48)
[2020-04-08 14:00] LABS: Bedside Glucose 138 mg/dL (70-110)
[2020-04-08] MEDS: Scopolamine 1mg/72hr Patch 1 PATCH TD (14:28)
[2020-04-08] MEDS: Cefazolin 1 GM/50 ML BAG IV (17:12)
[2020-04-08] MEDS: Aspirin 81 MG TAB.CHEW PO (17:12)
[2020-04-08] MEDS: Ensure Surgery 237 ML LIQUID PO (17:13)
[2020-04-08] MEDS: Atorvastatin Calcium 80 MG Tablet PO (20:08)
[2020-04-08] MEDS: Senna/Docusate Sodium 1 Tablet 2 TABLET PO (20:08)
[2020-04-09] MEDS: Cefazolin 1 GM/50 ML BAG IV (02:33)
[2020-04-09 02:54] VITALS: BP 129/82; PULSE 61; RESP 18; TEMP 36.5; O2SAT 99
[2020-04-09] MEDS: Acetaminophen 500 MG Tablet 1000 MG PO ×2 (05:36→13:59)
[2020-04-09] MEDS: oxyCODONE 5 MG Tablet PO ×3 (05:36→13:59)
[2020-04-09 06:03] LABS: Hemoglobin 11.5 g/dL (13.0-16.5); Mean Corp Hgb Conc 31.1 g/dL (32-36); Mean Corpuscular Hgb 29.9 pg (27.0-32.0); Mean Corpuscular Volume 96.4 fL (80-94); Mean Platelet Vol. 11.9 fl (6.2-12.0); Platelet Count 210 K/mm3 (150-450); RBC Distribution Width CV 12.6 % (11.6-14.6); RBC Distribution Width SD 44.8 fl (35.1-43.9); Red Blood Count 3.84 M/mm3 (4.6-6.2); White Blood Count 14.1 K/mm3 (4.4-11.0)
[2020-04-09 06:35] LABS: Anion Gap 2 (5-15); BUN 17 mg/dL (7-18); BUN/Creat Ratio 16.3 RATIO (10-20); Calcium,Total 8.6 mg/dL (8.5-10.1); Chloride 107 mmol/L (98-107); Creatinine, Serum 1.04 mg/dL (0.70-1.30); EST Glomerular Filtration Rate 75 mL/min (>60); Est Glom Filt Rate - Afr Amer 90 mL/min (>60); Estimated Creatinine Clearance 66.29 ml/min; Glucose 120 mg/dL (74-106); Potassium 4.4 mmol/L (3.5-5.1); Sodium Level 139 mmol/L (136-145)
[2020-04-09] MEDS: Senna/Docusate Sodium 1 Tablet 2 TABLET PO (07:59)
[2020-04-09] MEDS: Lisinopril 40 MG Tablet PO (07:59)
[2020-04-09] MEDS: Ensure Surgery 237 ML LIQUID PO ×2 (07:59→11:57)
[2020-04-09] MEDS: Aspirin 81 MG TAB.CHEW PO (07:59)
[2020-04-09] MEDS: Famotidine 20 MG Tablet PO (07:59)
[2020-04-09] MEDS: Pantoprazole Sodium 20 MG Tablet PO (08:00)
[2020-04-09] MEDS: Fenofibrate 48 MG Tablet PO (08:00)
[2020-04-09 08:03] VITALS: BP 121/71; PULSE 70; RESP 16; TEMP 36.7; O2SAT 97
--- NOTE | 2020-04-09 10:33 | PCM.PN.ORT ---
Subjective: The patient was sitting in bedside chair upon examination. Patient denies any chest pain, shortness of breath, dizziness, lightheadedness, nausea or vomiting, or calf pain. Pain is controlled on medications. No adverse overnight events. Overall patient has done very well. He tolerated therapy well. He is anxious to go home today. Objective: Vital signs stable and afebrile. Patient is able to plantarflex and dorsiflex actively. Sensation is intact to light touch to saphenous, sural, superficial and deep peroneal, and tibial distribution. Main dressing is clean dry and intact. Small drops of blood located over the distal pin site dressing Negative Homans bilaterally, negative signs and symptoms of DVT. - Physical Exam Vitals/I&O's: Vital Signs Temp Pulse Resp BP Pulse Ox 98.1 F 70 16 121/71 H 97 04/09/20 08:03 04/09/20 08:03 04/09/20 08:03 04/09/20 08:03 04/09/20 08:03 Oxygen Flow Rate (L/min) 3 Oxygen Delivery Method Room Air Weight: 138.7 kg Body Mass Index (BMI) 43.9 Intake and Output for Last 24 Hours 04/07/20 04/08/20 04/09/20 23:59 23:59 23:59 Intake Total 4432.91 / 4432.91 1450 / 1450 Output Total 350 / 350 Balance 4432.91 / 4432.91 1100 / 1100 General: Alert, Oriented x3, Cooperative, No apparent distress Microbiology Past 72 Hours 04/07/20 08:22 Interface Orders SARS-CoV-2 Antigen (Rapid) - Final Laboratory Results 04/08/20 13:56: POC Glucose 138 H 04/09/20 05:43: WBC 14.1 H, RBC 3.84 L, Hgb 11.5 L, Hct 37.0 L, MCV 96.4 H, MCH 29.9, MCHC 31.1 L, RDW Std Deviation 44.8 H, RDW Coeff of Jose 12.6, Plt Count 210, MPV 11.9 04/09/20 05:43: Sodium 139, Potassium 4.4, Chloride 107, Carbon Dioxide 30.0, Anion Gap 2 L, BUN 17, Creatinine 1.04, Estim Creat Clear Calc 66.29, Est GFR (MDRD) Af Amer 90, Est GFR (MDRD) Non-Af 75, BUN/Creatinine Ratio 16.3, Glucose 120 H, Calcium 8.6 Current Medications Acetaminophen (Acetaminophen 500 Mg Tablet) 1,000 mg PO Q8 REPLACED BY [facility] Last Admin: 04/09/20 05:36 Dose: 1,000 mg Documented by: Aspirin (Aspirin 81 Mg Tab.Chew) [facility] Last Admin: 04/09/20 07:59 Dose: 81 mg Documented by: Atorvastatin Calcium (Atorvastatin Calcium 80 Mg Tablet) 80 mg PO QHS REPLACED BY [facility] Last Admin: 04/08/20 20:08 Dose: 80 mg Documented by: Cholecalciferol (Cholecalciferol (Vit D3) 1,000 Unit (25mcg)) [facility] Last Admin: 04/09/20 08:00 Dose: 1,000 unit Documented by: Enteral Nutritional Formula (Ensure Surgery 237 Ml Liquid) 237 ml PO TIDCM REPLACED BY [facility] Last Admin: 04/09/20 07:59 Dose: 237 ml Documented by: Famotidine (Famotidine 20 Mg Tablet) 20 mg PO DAILY REPLACED BY [facility] Last Admin: 04/09/20 07:59 Dose: 20 mg Documented by: Fenofibrate (Fenofibrate 48 Mg Tablet) [facility] Last Admin: 04/09/20 08:00 Dose: 48 mg Documented by: Sodium Chloride () 250 mls @ 15 mls/hr IV .[id number] PRN PRN Reason: Additional IVPB Infusion Insulin Human Lispro (Insulin Lispro 100 Unit/Ml Insuln.Pen) 1 - 6 unit SC Q4H PRN PRN; Protocol PRN Reason: BG>/= 180, SEE PROTOCOL Ketorolac Tromethamine (Ketorolac 15 Mg/Ml Vial) 15 mg IV Q6H PRN PRN PRN Reason: Pain Score 1-5 Stop: 04/10/20 07:23 Lisinopril (Lisinopril 40 Mg Tablet) 40 mg PO DAILY REPLACED BY [facility] Last Admin: 04/09/20 07:59 Dose: 40 mg Documented by: Meloxicam (Meloxicam 7.5 Mg Tablet) 7.5 mg PO BID REPLACED BY [facility] Morphine Sulfate (Morphine 2 Mg/Ml Syringe) 2 - 4 mg IV Q2H PRN PRN PRN Reason: Pain Score 6-10 Morphine Sulfate (Morphine 4 Mg/Ml Syringe) 2 - 4 mg IV Q2H PRN PRN PRN Reason: Pain Score 6-10 Ondansetron HCl (Ondansetron 4 Mg/2 Ml Vial) 4 mg IV Q8H PRN PRN PRN Reason: NAUSEA Oxycodone HCl (Oxycodone 5 Mg Tablet) 5 - 10 mg PO Q4H PRN PRN PRN Reason: Pain Score 4-10 Last Admin: 04/09/20 10:07 Dose: 10 mg Documented by: Pantoprazole Sodium (Pantoprazole Sodium 20 Mg Tablet) 20 mg PO DAILY REPLACED BY [facility] Last Admin: 04/09/20 08:00 Dose: 20 mg Documented by: Promethazine HCl (Promethazine 25 Mg/Ml Syringe) 12.5 mg IM Q6H PRN PRN; Protocol PRN Reason: NAUSEA/VOMITING Senna/Docusate Sodium (Senna/Docusate Sodium 1 Tablet) 2 tablet PO BID REPLACED BY [facility] Last Admin: 04/09/20 07:59 Dose: 2 tablet Documented by: Sodium Chloride (0.9% Nacl Peripheral Flush Adult/Peds) 5 - 15 ml IV UD PRN PRN Reason: SALINE FLUSH Medical Necessity - Tobacco Use Smoking Status: Former smoker Assessment/Plan All Active Problems (Last Reviewed 01/22/20 @ 14:[address] Azar Drake MD) Chest pain at rest (Resolved) 1. S/P right total knee arthroplasty POD #1 2. Continue Pain Medications: Tylenol, meloxicam, oxycodone 3. DVT Prophylaxis: Take 81 mg aspirin twice daily for 4 weeks postoperatively for DVT prophylaxis 4. PT/OT: Weightbearing as tolerated 5. H & H: 11.5/37.0, asymptomatic. Postoperative anemia secondary to blood loss from surgery without any intraoperative complications 6. Reactive leukocytosis: Currently 14.1, afebrile. Patient did receive Decadron intraoperatively 7. Encouraged Incentive Spirometry 8. Disposition: Plan is for discharge home today. Patient will follow-up per postop instructions. Patient has outpatient physical therapy established. Prescriptions will be E scribed to [facility]. I have reviewed the [place] Automated Rx Reporting System ([place]ARRS) report for this patient for refill pattern and other prescriber involvement as part of the appropriate surveillance for the provision of acute and chronic controlled medications. The report was requested and reviewed on the date of this entry and was considered in the prescribing process.
--- NOTE | 2020-04-09 10:42 | DCINST_ITS ---
Discharge Diet: No Restrictions Discharge Activity: May Not Drive May shower in (days): 1 - Dressing must be intact the skin, turn dressing away from water Ice area for (Minutes): 20 - Every 1-2 hours while awake Weight Bearing Status: Weight bearing as tolerated Elevate: Operative Extremity Additional Activity Instructions:: Wear elastic stockings for 2 weeks after your surgery. Call your doctor if your incision/area has: Continuous Slow Oozing, Sudden Increased Bleeding, Increased Pain/ Swelling, Increased Redness, Foul Smelling Discharge Call your doctor if you observe: Fever of 101 or Higher, Coldness, Increased Pain, Numbness or Tingling, Change in Color, Calf discomfort, Uncontrolled pain Remove Dressing in (days):: 4 - Okay to remove dressing on April 13, 2020 Additional Instructions: Follow postoperative orthopedic postop instructions Allergies/Adverse Reactions: Allergies No Known Allergies Allergy (Verified 04/08/20 07:42) Medications to take at Discharge Atorvastatin Calcium [Lipitor] 80 mg PO QHS 01/08/20 Cholecalciferol (VIT D3) [Vitamin D3] 1,000 unit PO DAILY 01/08/20 Esomeprazole Mag Trihydrate [Nexium] 20 mg PO DAILY 01/08/20 Fenofibrate 54 mg PO DAILY 01/08/20 Lisinopril 40 mg PO DAILY 03/25/20 Acetaminophen [Tylenol] 1,000 mg PO Q8 #0 tablet 04/09/20 Aspirin [Aspirin, Baby] 81 mg PO BIDCM tab.chew 04/09/20 Meloxicam [Mobic] 7.5 mg PO BID #60 tab 04/09/20 Oxycodone [Oxyir] 5 - 10 mg PO Q4H PRN PRN 4 Days #48 tablet 04/09/20 Senna/Docusate Sodium [Senokot-S] 2 tab PO BID #14 tab 04/09/20 The following prescriptions were given: Meloxicam [Mobic] 7.5 mg PO BID #60 tab Transmission Status: Pending to [facility] Oxycodone [Oxyir] 5 - 10 mg PO Q4H PRN PRN 4 Days #48 tablet PRN Reason: Pain Score 4-10 Transmission Status: Received by [facility] Senna/Docusate Sodium [Senokot-S] 2 tab PO BID #14 tab Transmission Status: Pending to [facility] Primary Care Physician: Bharat Monae MD [Primary Care Provider] - Test Results: Test results from this visit will be discussed in further detail at your follow- up appointment, if applicable. Please Follow Up With: Terrance Milton Physical therapy When: 04/10/20 @ 9:00 am Please Follow Up With: Trish Currie NP, [facility] When: 04/22/20 @ 9:00 am
[2020-04-09 11:45] VITALS: BP 102/65; PULSE 74; RESP 16; TEMP 36.8; O2SAT 94
--- NOTE | 2020-04-09 11:55 | CASEMGMT ---
WHIT HOYT Face to Face with patient for initial transition planning/care coordination assessment. WHIT HOYT introduced self and role at [facility]. Patient lying in bed, alert and oriented. Patient willing to participate in assessment and is able to answer all questions appropriately. Care providers, pharmacy, and demographics verified. Patient wishes to discharge home and is setup with [facility] for outpatient therapy. Patient states he has no further needs or concerns at this time. CM to follow for discharge planning needs that may arise. PCP: Dov Specialists: shandra Miranda Pharmacy: [facility] Insurance: [facility] Veronika Prescription Benefit: yes Living Will/HPOA: yes, Jessica Narayanna LNOK: Living Arrangements: Patient lives with in a ranch home with 3 steps and railing to enter the home. Patient states he was independent at home prior to surgery. Transportation: DME/HHC: Patient states he has shower chair, raised toilet, cane, walker, grab bars, and cpap at home. Patient is scheduled for outpatient therapy at [facility] on Monday. Disposition Plan: Patient to discharge home with outpatient therapy, family support, and follow-up plans in place. Marta HANSEN, RN, CM
--- NOTE | 2020-04-09 12:00 | CASEMGMT ---
WHIT HOYT in to discuss CRAIG form with patient. WHIT HOYT reviewed CRAIG form with patient, patient voiced understanding. Patient signed CRAIG form and filed in chart. Patient provided copy of signed CRAIG form. Patient had no further questions or concerns at this time.
[2020-04-09 13:47] VITALS: O2SAT 98
== END 2020-04-09 14:14 | disposition home or self-care (01) ==
LOC: MS3 04-09 07:39 → SDC 04-09 07:48 → MS3 04-09 07:48
PROVIDERS: Admitting Provider Specialist; PCP Family Medicine; Referring Provider Specialist; Visit Provider Specialist
PROC: 0SRC0JZ Replacement of Right Knee Joint with Synthetic Substitute, Open Approach (ICD-10-PCS; CPT 27447; principal; 2020-04-08 09:00)
DX: M17.11 Unilateral primary osteoarthritis, right knee (principal); Z20.828 Contact with and (suspected) exposure to other viral communicable diseases; E78.00 Pure hypercholesterolemia, unspecified; I10 Essential (primary) hypertension; K21.9 Gastro-esophageal reflux disease without esophagitis; G47.30 Sleep apnea, unspecified; I27.20 Pulmonary hypertension, unspecified; Z87.891 Personal history of nicotine dependence; Z79.899 Other long term (current) drug therapy; Z79.82 Long term (current) use of aspirin
CPT/HCPCS: 01400; 27447; 64447; S2900; 36415; 73560; 80048; 82962; 85027; 87081; 87426; 96361; 96365; 96366; 97110; 97162; 97166; 97530; 97535; 99218; 99251; C1776; C9803; J7120; G0378; G0379; G0463; J2405